=== PATIENT | female | born 1980 | race Caucasian/White ===

== ENCOUNTER 2021-12-08 11:04 | Emergency (ER) | payer OTHER, SELFPAY ==
[2021-12-08 11:14] VITALS: BP 116/71; PULSE 72; RESP 16; TEMP 36.4; O2SAT 99
--- NOTE | 2021-12-08 12:22 | ED.SKABFB ---
HPI - Skin/Abscess/Foreign Bdy General Chief complaint: Skin/Abscess/Foreign Body Stated complaint: Cut on finger Time Seen by Provider: 12/08/21 12:22 Source: patient Mode of arrival: ambulatory Limitations: no limitations History of Present Illness HPI narrative: 41-year-old female presents with concern for infection to left thumb. States last week she had laceration to distal aspect left thumb after using her wax warmer. States that laceration healed without complication. Today took off Band-Aid and noticed redness to lateral aspect of the cuticle left thumb. Is concerned that she may have an infection. There is no drainage. Range of motion to left thumb is intact. All systems reviewed and negative except as noted above. Related Data Allergies Allergy/AdvReac Type Severity Reaction Status Date / Time No Known Allergies Allergy Verified 12/08/21 12:27 Review of Systems Review of Systems: CONSTITUTIONAL: Denies fever, chills, or sweats. EYES: Denies visual changes, redness, or discharge. ENT: Denies rhinorrhea, congestion, sore throat, or otalgia. CARDIOVASCULAR: Denies chest pain, palpitations, or edema. RESPIRATORY: Denies cough or dyspnea. GASTROINTESTINAL: Denies abdominal pain, nausea, vomiting, or diarrhea. GENITOURINARY: Denies dysuria or hematuria. SKIN: Denies rash or itching. Reports redness to left thumb. MUSCULOSKELETAL: Denies back pain, joint pain, or myalgia. NEUROLOGIC: Denies headache, numbness, or weakness. PSYCHIATRIC: Denies anxiety or depression. All other systems reviewed are negative, except as documented in HPI. PMFSH Comments At time of signature, agree with nursing past medical, surgical, social and family history. There is no relevant family history pertinent to the presenting complaint. Exam Narrative: GENERAL: This is a well-nourished, well-developed patient, in no apparent distress. HEAD: normocephalic, atraumatic. EYES: PERRL. Sclera clear/white. Vision is grossly intact. EARS: External ears normal NOSE: External nose normal NECK: Neck supple, non-tender without lymphadenopathy, masses or thyromegaly. CARDIOVASCULAR: Regular rate and rhythm without murmurs, gallops, or rubs. RESPIRATORY: Clear to auscultation. Breath sounds equal bilaterally. No wheezes, rales, or rhonchi. SKIN: warm, Dry, intact with no suspicious lesions or rash, good texture and turgor. small blood blister to lateral aspect L thumb cuticle with scant surrounding erythema NEURO: awake, alert, and oriented to person, place and time. There were no obvious focal neurologic abnormalities. EXTREMITIES: No joint tenderness, effusion, or edema noted. Course Course Level of Care: Express Care Visit Vital Signs Vital signs: Vital Signs Temperature 36.4 C L 12/08/21 11:14 Pulse Rate 72 12/08/21 11:14 Respiratory Rate 16 12/08/21 11:14 Blood Pressure 116/71 12/08/21 11:14 Pulse Oximetry 99 12/08/21 11:14 Oxygen Delivery Room Air 12/08/21 11:14 Temperature 36.4 C L 12/08/21 11:14 Pulse Rate 72 12/08/21 11:14 Respiratory Rate 16 12/08/21 11:14 Blood Pressure 116/71 12/08/21 11:14 Pulse Oximetry 99 12/08/21 11:14 Oxygen Delivery Room Air 12/08/21 11:14 Reviewed reviewed reviewed reviewed MDM - Skin/Abscess/Foreign Bdy MDM Narrative Medical decision making narrative: Patient is aware of diagnosis, understands and agrees to treatment plan. Anticipatory guidance given. Patient agrees to follow-up as directed and is aware of reasons to seek care at the emergency department. Portions of this record may have been created with voice recognition software Discharge Plan Discharge Clinical Impression: Blood blister Patient Disposition: Home, Self-Care Condition: Stable Instructions: Purpura (ED) Prescriptions: New mupirocin 2 % ointment 1 applic topical BID 7 Days Qty: 15 0RF Follow-up/Referrals: PHYSICIAN NOT ON STAFF,NONSTAFF [Primary Care Provid
== END 2021-12-08 12:36 | disposition home or self-care (01) ==
PROVIDERS: Emergency Provider Nurse Practitioner Family
DX: S60.322A Blister (nonthermal) of left thumb, initial encounter (principal); X58.XXXA Exposure to other specified factors, initial encounter
CPT/HCPCS: 99213; G0463

== ENCOUNTER 2023-06-02 08:05 | Emergency (ER) | payer OTHER, SELFPAY ==
--- NOTE | 2023-06-02 08:12 | ED.URI ---
HPI - URI/Sore Throat General Chief Complaint: Upper Respiratory Infection Stated Complaint: sorethroat Time Seen by Provider: 06/02/23 08:13 Related Data Home Medications Medication Instructions Recorded Confirmed clonazepam 0.5 mg tablet mg 06/02/23 fluoxetine 10 mg capsule mg 06/02/23 Allergies Allergy/AdvReac Type Severity Reaction Status Date / Time bupropion [From Wellbutrin] Allergy Swelling Verified 06/02/23 08:23 [facility] Surgical History Surgical History (Updated 06/02/23 @ 08:15 by BABS Cunha) H/O eye surgery History of tonsillectomy Discharge Plan Discharge Prescriptions: No Action clonazepam 0.5 mg tablet fluoxetine 10 mg capsule Follow-up/Referrals: UNKNOWN,DOCTOR [Non-Staff] -
--- NOTE | 2023-06-02 08:13 | ED.GENADULT ---
HPI - General Adult General Chief complaint: Upper Respiratory Infection Stated complaint: sorethroat Time Seen by Provider: 06/02/23 08:13 Source: patient Mode of arrival: ambulatory Limitations: no limitations History of Present Illness HPI narrative: 42-year-old female patient presents to the [facility] with complaints of a sore throat with the right side being worse than left that started this morning when she woke up. Patient states she has 2 children the recently diagnosed in being treated for strep. Patient states she went to bed early last night at 6:00 p.m. due to feeling more tired than usual. Denies fevers body aches or chills. Denies any nausea vomiting or diarrhea. Denies any abdominal pain. Denies any chest pain or shortness of breath. Denies any congestion or runny nose. Patient denies taking any medications for those symptoms prior to arrival Related Data Home Medications Medication Instructions Recorded Confirmed clonazepam 0.5 mg tablet mg 06/02/23 fluoxetine 10 mg capsule mg 06/02/23 Allergies Allergy/AdvReac Type Severity Reaction Status Date / Time bupropion [From Wellbutrin] Allergy Swelling Verified 06/02/23 08:23 Review of Systems Review of Systems: CONSTITUTIONAL: Denies fever, chills, or sweats. EYES: Denies visual changes, redness, or discharge. ENT: Denies rhinorrhea, congestion, positive sore throat, or otalgia. CARDIOVASCULAR: Denies chest pain, palpitations, or edema. RESPIRATORY: Denies cough or dyspnea. GASTROINTESTINAL: Denies abdominal pain, nausea, vomiting, or diarrhea. GENITOURINARY: Denies dysuria or hematuria. SKIN: Denies rash or itching. MUSCULOSKELETAL: Denies back pain, joint pain, or myalgia. NEUROLOGIC: Denies headache, numbness, or weakness. PSYCHIATRIC: Denies anxiety or depression. PMFSH Surgical History Surgical History H/O eye surgery History of tonsillectomy Comments At the time of my signature I agree with nursing past medical history, surgical, social, and family history. There is no relevant family history pertinent to the presenting complaint. Exam Narrative: GENERAL: Well-appearing, well-nourished, and in no acute distress. HEAD: Normocephalic, atraumatic. EYES: PERRLA and EOMI. ENT: Nares with erythema and edema noted on the right side with the right nares swollen shut, no rhinorrhea or epistaxis. Mucous membranes moist. posterior pharynx with no erythema, tonsillar enlargement, exudates or lesions present. Bilateral TMs are clear no erythema or foreign bodies the canal. NECK: Supple. No lymphadenopathy CHEST: Clear to auscultation. No respiratory distress. HEART: Regular rate and rhythm. No murmur heard. Normal peripheral pulses. ABDOMEN: Soft, nontender, nondistended, normal active bowel sounds. EXTREMITIES: Normal range of motion. No edema. SKIN: Warm, dry, no rash. NEURO: No focal deficits. Alert and oriented x3. Course Course Level of Care: Express Care Visit Vital Signs Vital signs: Vital Signs Temperature 36.2 C L 06/02/23 08:25 Pulse Rate 70 06/02/23 08:25 Respiratory Rate 16 06/02/23 08:25 Blood Pressure 135/91 H 06/02/23 08:25 Pulse Oximetry 100 06/02/23 08:25 Oxygen Delivery Room Air 06/02/23 08:25 Temperature 36.2 C L 06/02/23 08:25 Pulse Rate 70 06/02/23 08:25 Respiratory Rate 16 06/02/23 08:25 Blood Pressure 135/91 H 06/02/23 08:25 Pulse Oximetry 100 06/02/23 08:25 Oxygen Delivery Room Air 06/02/23 08:25 vital signs reviewed. The patient has been informed that they may have pre-hypertension or Hypertension based on a BP reading in the department. I recommend that the patient call the primary care provider listed on their discharge instructions or a physician of their choice this week to arrange follow up for further evaluation of possible pre-hypertension or Hypertension Medical Decision Making MDM Narrati
[2023-06-02 08:25] VITALS: BP 135/91; PULSE 70; RESP 16; TEMP 36.2; O2SAT 100
== END 2023-06-02 08:43 | disposition home or self-care (01) ==
PROVIDERS: Emergency Provider Nurse Practitioner Family
DX: J02.8 Acute pharyngitis due to other specified organisms (principal); Z79.899 Other long term (current) drug therapy
CPT/HCPCS: 87081; 87880; 99213; G0463

== ENCOUNTER 2024-08-13 16:59 | Emergency (ER) | payer OTHER, SELFPAY ==
--- OUTSIDE RECORDS SUMMARY | 2024-08-13 17:03 | XMS_ITS | Clinical Summary ---
Author Organization [facility] [employer] Address [address] [place] [address] Care Team Providers Care Certified Performance Technologist Name Role Phone Jesse Stevens DO Primary Care Provider [phone] Jesse Stevens DO Unavailable [phone] Source Comments [facility],non-owned Affiliates and Associated Physician Practices is amultiple site organization consisting of ambulatory clinics and hospital sitesin [place], [place], [place] and [place]. This disclosure is being madepursuant to the Care Everywhere program and may not contain all information available regarding this patient. Last updated 18.[facility] [employer] Allergies Active Allergy Reactions Criticality Noted Date Comments Bupropion Angioedema High 09/23/2020 Medications * Be aware that medications may not be up to date on this document. Alwaysverify current medications with the patient. Medication Sig Dispensed Refills Start Date End Date Status Cholecalciferol (Vitamin D) 50 MCG (1999) capsuleIndicatio ns:Vitamin D Deficiency Take 1 (one) capsule by mouth once daily Reasons: Vitamin D Deficiency 30 capsule 5 06/14/2023 Active spironolactone (Aldactone) 100 MG tablet Take 1 (one) tablet by mouth once daily 10/06/2023 Active clonazePAM (KlonoPIN) 0.5 MG tabletIndication s:Anxiety Take 1 (one) tablet by mouth 2 times daily as needed anxiety Reasons: Feeling Anxious 60 tablet 1 07/02/2024 Active montelukast (Singulair) 10 MG tabletIndication s:cough Take 1 (one) tablet by mouth at bedtime Reasons: cough 30 tablet 1 07/02/2024 Active FLUoxetine (PROzac) 20 MG capsule Take 1 (one) capsule by mouth once daily 07/02/2024 Active tirzepatide (Zepbound) 5 MG/0.5ML injectionIndicat ions:Class 1 obesity without serious comorbidity with body mass index (BMI) of 32.0 to 32.9 in adult, unspecified obesity type Inject 5 (five) mg subcutaneously every 7 days 2 mL 3 07/21/2024 Active tirzepatide (Zepbound) 2.5 MG/0.5ML injectionIndicat ions:Obesity Inject 2.5 (two and one-half) mg subcutaneously every 7 days Reasons: OBESITY 2 mL 1 07/02/2024 Discontinu ed(Dose Adjustment ) Active Problems Problem Noted Date Diagnosed Date Class 1 obesity without seri ous comorbidity with body mass index (BMI) of 32.0 to 32.9 in adult 08/30/2023 Seasonal affective disorder 06/01/2019 Amenorrhea 01/25/2017 Adult attention deficit disorder 06/16/2015 Migraine without aura and wi thout status migrainosus, not intractable 06/16/2015 Anxiety 08/24/2011 ADD (attention deficit disorder) 07/10/2011 Allergic rhinitis 03/03/2010 Encounters Date Type Department Care Team Description 07/21/2024 Orders Only [facility] [address] [place] [address] Shen Chavez APRN-RAUL Class 1 obesity without serious comorbidity with body mass index (BMI) of 32.0 to 32.9 in adult, unspecified obesity type 07/02/2024 9:00 AM BROKERAGE COORDINATOR Office Visit [facility] [address] [place] [address] Jesse Stevens DO Well adult exam (Primary Dx); Malaise; Vitamin D deficiency; Lipid screening; DION (generalized anxiety disorder); Encounter for screening mammogram for malignant neoplasm of breast; Hypersomnia; LUIS (obstructive sleep apnea); Class 1 obesity without serious comorbidity with body mass index (BMI) of 32.0 to 32.9 in adult, unspecified obesity type; Cough, unspecified type from Last 3 Months Immunizations Name Administration Dates Next Due FLU VACCINE TRI IIV3 SPLIT I M (FLUVIRIN) 02/21/2018 INFLUENZA VACCINE 02/21/2018, 6,02/17/2015,2010,1982 03/05/2017 INFLUENZA VACCINE, QUADR. (F LUZONE; FLULAVAL; FLUARIX; AFLURIA QUADRIVALENT; 6MO+), 0.5 ML (IIV4) 04/29/2022,01/22/2020 TDAP (7yrs+) 06/27/2014,05/27/2012 Family History Medical History Relation Name Comments Hypercholesterolemia Father Hypertension Father Thyroid Disease Father Diabetes Maternal Grandmother Other Paternal Grandfather Relation Name Status Comments Father Alive Maternal Grandfather Other Maternal Grandmother Alive Mother Alive Paternal Grandfather Sister Alive Social History Tobacco Use Types Packs/Day Years Used Date Smoking Tobacco: Never Smokeless Tobacco: Never Alcohol Use Standard Drinks/Week Comments No 0 (1 standard drink = 0.6 oz pur e alcohol) PHQ-2 Answer Date Recorded Patient Health Questionnaire-2 Score 0 07/02/2024 Sex and Gender Information Value Date Recorded Sex Assigned at Not on file Gender Identity Not on file Sexual Orientation Not on file Last Filed Vital Signs Vital Sign Reading Time Taken Comments Blood Pressure 124/70 07/02/2024 8:53 AM BROKERAGE COORDINATOR Pulse 75 07/02/2024 8:53 AM BROKERAGE COORDINATOR Temperature 36.9 C (98.5 F) 07/02/2024 8:53 AM BROKERAGE COORDINATOR Respiratory Rate - - Oxygen Saturation 99% 07/02/2024 8:53 AM BROKERAGE COORDINATOR Inhaled Oxygen Concentration - - Weight 80.3 kg (177 lb) 07/02/2024 8:53 AM BROKERAGE COORDINATOR Height 160 cm (5' 2.99 ) 07/02/2024 8:53 AM BROKERAGE COORDINATOR Body Mass Index 31.36 07/02/2024 8:53 AM BROKERAGE COORDINATOR Plan of Treatment Health Maintenance Due Date Last Done Comments PAP SMEAR 1982 HIV SCREENING 1997 HEPATITIS C SCREENING 06/12/2000 HEPATITIS B VACCINE (1 of 3 - 19+ 3-dose series) 2001 COVID-19 VACCINE ( season) 2024 06/23/2020, 05/26/2020 INFLUENZA VACCINE (#1) 2024 2, 01/22/2020, 02/21/2018, Additional history exists DTAP/TDAP/TD VACCINES (3 - Td or Tdap) 06/27/2024 06/27/2014, 05/27/2012 SCREENING FOR DIABETES 01/31/2026 3, 01/25/2021, 06/16/2015, Additional history exists MAMMOGRAM 07/24/2026 07/24/2024 LIPID TESTING 02/01/2028 01/31/2023, 09/0 05/2020, 01/25/2017, Additional history exists ZOSTER VACCINE (1 of 2) 2032 DEPRESSION SCREENING Completed 07/02/2024, 08/30/2023, 06/14/2023, Additional history exists HIB VACCINE Aged Out No longer eligi ble based on patient's age to complete this topic HPV VACCINE Aged Out No longer eligi ble based on patient's age to complete this topic MENINGOCOCCAL (Group B) VACCINE SHARED DECISION-MAKING Aged Out No longer eligible based on patient's age to complete this topic MENINGOCOCCAL GROUPS A/C/Y/W VACCINE Aged Out No longer eligible based on patient's age to complete this topic PNEUMOCOCCAL VACCINE Aged Out No long er eligible based on patient's age to complete this topic Goals Goal Patient Goal Type Associated Problems Recent Progress Patient-Stated? Author Yearly PCP visit Lifestyle No Aria Shore MA Procedures Procedure Name Priority Date/Time Associated Diagnosis Comments MAMMOGRAM 07/24/2024 COMPREHENSIVE METABOLIC PANEL Routine 01/31/2023 11:50 AM CDT Malaise Well adult exam LIPID PROFILE REFLEX LDL DIRECT Routine 01/31/2023 11:50 AM CDT Well adult exam Lipid screening from Last 3 Months or Most Recently Relevant to Health Maintenance Results * MAMMOGRAM (07/24/2024) Anatomical Region Laterality Modality Other 07/24/2024 Narrative 07/24/2024 Ordered by an unspecified provider. Scanned Document SCANNING ONLY * (ABNORMAL) LIPID PROFILE REFLEX LDL DIRECT (01/31/2023 11:50 AM CDT) Cholesterol 185 100 - 199 mg/dL [facility] INSURANCE BILL Triglycerides 157(H) 0 - 149 mg/dL [facility] INSURANCE BILL HDL Cholesterol 42 >39 mg/dL [facility] INSURANCE BILL VLDL Calculated 28 5 - 40 mg/dL [facility] INSURANCE BILL LDL Calculated 115(H) 0 - 99 mg/dL [facility] INSURANCE BILL Comment NOT AVAILABLE [facility] INSURANCE BILL Comment:Result cannot be obt ained for this observation. Cholesterol/HDL Ratio 4.4 0.0 - 4.4 ratio [facility] INSURANCE BILL Comment: T. Chol/HDL Ratio Men Women 1/2 Avg.Risk 3.4 3.3 Avg.Risk 5.0 4.4 2X Avg.Risk 9.6 7.1 3X Avg.Risk 23.4 11.0 LDL/HDL Ratio 2.7 0.0 - 3.2 ratio [facility] INSURANCE BILL Comment: LDL/HDL Ratio Men Women 1/2 Avg.Risk 1.0 1.5 Avg.Risk 3.6 3.2 2X Avg.Risk 6.2 5.0 3X Avg.Risk 8.0 6.1 Blood BLOOD SPECIMEN / Unknown 01/31/2023 11:50 AM CDT 01/31/2023 Narrative Resulting Agency Comment Lab Testing performed at: [facility] [address] [id number] Jesse Stevens DO LAB - CHEMISTRY [place] [facility] INSURANCE BILL [address] [place] [address] * COMPREHENSIVE METABOLIC PANEL (01/31/2023 11:50 AM CDT) Glucose 84 70 - 99 mg/dL [facility] INSURANCE BILL BUN 12 6 - 24 mg/dL [facility] INSURANCE BILL Creatinine 0.83 0.57 - 1.00 mg/dL [facility] INSURANCE BILL eGFR by CKD-EPI 91 >59 mL/min/1.7 3 [facility] INSURANCE BILL BUN/Creatinine Ratio 14 9 - 23 [facility] INSURANCE BILL Sodium 141 134 - 144 mmol/L [facility] INSURANCE BILL Potassium 4.3 3.5 - 5.2 mmol/L [facility] INSURANCE BILL Chloride 106 96 - 106 mmol/L [facility] INSURANCE BILL CO2 23 20 - 29 mmol/L [facility] INSURANCE BILL Calcium 9.0 8.7 - 10.2 mg/dL [facility] INSURANCE BILL Protein Total 6.8 6.0 - 8.5 g/dL [facility] INSURANCE BILL Albumin 4.3 3.9 - 4.9 g/dL [facility] INSURANCE BILL Globulin Total 2.5 1.5 - 4.5 g/dL [facility] INSURANCE BILL Albumin/Globulin Ratio 1.7 1.2 - 2.2 [facility] INSURANCE BILL Bilirubin Total 0.2 0.0 - 1.2 mg/dL [facility] INSURANCE BILL Alkaline Phosphatase 87 44 - 121 IU/L [facility] INSURANCE BILL AST 16 0 - 40 IU/L [facility] INSURANCE BILL ALT 20 0 - 32 IU/L [facility] INSURANCE BILL Blood BLOOD SPECIMEN / Unknown 01/31/2023 11:50 AM CDT 01/31/2023 Narrative Resulting Agency Comment [facility] [address] [id number] Jesse Stevens DO LAB - CHEMISTRY [place] [facility] INSURANCE BILL [address] [place] [address] from Last 3 Months or Most Recently Relevant to Health Maintenance Care Teams Certified Performance Technologist Relationship Specialty Start Date End Date Jesse Stevens DO [address] [place] [address] PCP - General Family Medicine 01/19/10 Jesse Stevens DO [address] [place] [address] PCP - Attributed-[employer] 01/25/22
--- OUTSIDE RECORDS SUMMARY | 2024-08-13 17:03 | XMS_ITS | Continuity of Care Document ---
Author Organization [facility] Address [address] [address] Phone Care Team Providers Care Aquaculture Director Name Role Phone MD YATES GILBERT Unavailable Unavailable Advance Directives Directive Yes / No Effective Date File Name No Information Encounters Encounter Description Practice Location Reason(s) For Visit Diagnoses Date Provider Providers Copied on Encounter [facility], [address] [place], [place], [id number], [place] tel:[phone] [facility] No Information MD ERIKA YATES. [address] [place] [address], [id number], [place]. tel:[phone] Referring Provider: MAKENZIE ROBBINS G, [address], [place], [address]. tel:[phone] Family History Family Member Type Diagnosis Age At Onset No Information Payers Payer name Insurance type Covered alliance party ID Authoriza tisanket(s) [facility] [id number] CI [id number] Social History Type Description Quantity Date Captured Comments Sex Female Smoking Status No Information Chief Complaint And Reason For Visit No Information History Of Present Illness Encounter Date Complaint History Of Prese nt Illness No Information Instructions Date Instruction Additional Infor mation No Information Assessments Type Assessment Date No Information
[2024-08-13 17:55] VITALS: BP 142/92; PULSE 90; RESP 16; TEMP 36.6; O2SAT 100
--- NOTE | 2024-08-13 17:57 | ED_ITS ---
HPI - Eye Problem General Chief complaint: Eye Problems <THERESA Kelly Last Filed: 08/13/24 19:36> Stated complaint: Vision changes-Hx Narrow Angle Glaucoma-Lt eye <THERESA Kelly Last Filed: 08/13/24 19:36> Time Seen by Provider: 08/13/24 17:57 <THERESA Kelly Last Filed: 08/13/24 19:36> Focused HPI: Patient is a 44-year-old female who presents the ED with report of left eye vision changes. Patient has history of strabismus and narrow angle glaucoma in her left eye. She sees Dr. Regan with Ophthalmology at [facility] for this. States she was told her angle is not narrow enough to require surgery. Since around 230pm today, patient has been having blurry vision/vision changes in her left eye. She describes her vision as seeming out of focus in her left eye particularly when she is looking straight ahead or downward. No vision changes in the left eye. No vision loss. Denies pain, pain with eye movements. Denies photophobia. Denies halos, floaters, flashes of light, curtain coming down. GENERAL: Well-appearing, obese with BMI of 30.2, and in no acute distress. HEAD: Normocephalic, atraumatic. EYES: PERRL/EOMI, conjunctiva clear. No nystagmus. No pain with eye movements. No haziness of cornea. CHEST: Clear to auscultation. ?No respiratory distress. HEART: Regular rate and rhythm.? NEURO: ?Alert and oriented x3. Patient screened in triage and initial orders placed.? ?Additional care and disposition to be based upon?diagnostic testing and treatment. <THERESA Kelly Last Filed: 08/13/24 19:36> Source: patient <THERESA Kelly Last Filed: 08/13/24 19:36> Mode of arrival: ambulatory <THERESA Kelly Last Filed: 08/13/24 19:36> Limitations: no limitations <THERESA Kelly Last Filed: 08/13/24 19:36> History of Present Illness HPI Narrative: I agree with the assessment and documentation of Kristy Laird PA-C. <Felicia Wilburn APRN - Last Filed: 08/13/24 22:14> Related Data Home medications: Home Medications ?Medication ?Instructions ?Recorded ?Confirmed ?Last Taken ?Type clonazepam 0.5 mg tablet mg 06/02/23 Unknown History fluoxetine 10 mg capsule mg 06/02/23 Unknown History <Kristy Laird PA-C - Last Filed: 08/13/24 19:36> Allergies/adverse reactions: Allergies Allergy/AdvReac Type Severity Reaction Status Date / Time bupropion (From Wellbutrin) Allergy Swelling Verified 08/13/24 17:02 <Kristy Laird PA-C - Last Filed: 08/13/24 19:36> Review of Systems Review of Systems: All systems reviewed & are unremarkable except as noted in HPI and below <Felicia Wilburn APRN - Last Filed: 08/13/24 22:14> [facility] Surgical History Surgical History: Surgical History H/O eye surgery History of tonsillectomy <Kristy Laird PA-C - Last Filed: 08/13/24 19:36> Exam Narrative: GENERAL: Well-appearing, obese with BMI of 30.2, and in no acute distress. HEAD: Normocephalic, atraumatic. EYES: PERRL/EOMI, conjunctiva clear. No nystagmus. No pain with eye movements. No haziness of cornea. CHEST: Clear to auscultation. ?No respiratory distress. HEART: Regular rate and rhythm.? NEURO: ?Alert and oriented x3. <Felicia Wilburn APRN - Last Filed: 08/13/24 22:14> Course Vital Signs Vital signs: Vital Signs Temperature 36.6 C 08/13/24 17:55 Pulse Rate 90 08/13/24 17:55 Respiratory Rate 16 08/13/24 17:55 Blood Pressure 142/92 H 08/13/24 17:55 Pulse Oximetry 100 08/13/24 17:55 Temperature 36.6 C 08/13/24 17:55 Pulse Rate 90 08/13/24 17:55 Respiratory Rate 16 08/13/24 17:55 Blood Pressure 142/92 H 08/13/24 17:55 Pulse Oximetry 100 08/13/24 17:55 <Kristy Laird PA-C - Last Filed: 08/13/24 19:36> Vital Signs Temperature 36.6 C 08/13/24 17:55 Pulse Rate 90 08/13/24 17:55 Respiratory Rate 16 08/13/24 17:55 Blood Pressure 142/92 H 08/13/24 17:55 Pulse Oximetry 100 08/13/24 17:55 Temperature 36.6 C 08/13/24 17:55 Pulse Rate 90 08/13/24 17:55 Respiratory Rate 16 08/13/24 17:55 Blood Pressure 142/92 H 08/13/24 17:55 Pulse Oximetry 100 08/13/24 17:55 <Felicia Wilburn APRN - Last Filed: 08/13/24 22:14> MDM - Eye Problem MDM Narrative Medical decision making narrative: MSE by YVETTE in triage. L eye IOP 15 R eye 15-18 - no sx's L 20/50 R 20/25 Both 20/20 <Kristy Laird PA-C - Last Filed: 08/13/24 19:36> MSE by YVETTE in triage. Patient is a 44-year-old female who presents the ED with report of left eye vision changes. Patient has history of strabismus and narrow angle glaucoma in her left eye. She sees Dr. Regan with Ophthalmology at [facility] for this. States she was told her angle is not narrow enough to require surgery. Since around 230pm today, patient has been having blurry vision/vision changes in her left eye. She describes her vision as seeming out of focus in her left eye particularly when she is looking straight ahead or downward. No vision changes in the left eye. No vision loss. Denies pain, pain with eye movements. Denies photophobia. Denies halos, floaters, flashes of light, curtain coming down. L eye IOP 15 R eye 15-18 - no sx's L 20/50 R 20/25 Both 20/20 2015- Spoke with ophthalmology (Cha) at [place]. He has concerns for optic neuritis. Ophthalmology recommends pt be transferred to [facility] ER. 2020- Spoke with ER physician who agreed to accept pt in the ER at [facility]. Dr. Hay is the accepting ER physician. Patient in agreement with transfer to [facility]. Offered pt transfer via ambulance but she declined. She would like to go via private vehicle. <Felicia Wilburn APRN - Last Filed: 08/13/24 22:14> Differential Diagnosis Differential diagnosis: Likely corneal abrasion, conjunctivitis, acute iritis, glaucoma and corneal ulcer <Felicia Wilburn APRN - Last Filed: 08/13/24 22:14> Medical Records Attestation: I reviewed the patient's medical records. <Kristy Laird PA-C - Last Filed: 08/13/24 19:36> Discharge Plan Discharge Clinical Impression: Alteration in vision <Kristy Laird PA-C - Last Filed: 08/13/24 19:36> Patient Disposition: Acute Care Hospital <Kristy Laird PA-C - Last Filed: 08/13/24 19:36> Condition: Stable <Kristy Laird PA-C - Last Filed: 08/13/24 19:36> Additional Instructions: Please report to [facility] ER as soon as possible. They are expecting you. <Kristy Laird PA-C - Last Filed: 08/13/24 19:36> Patient Language: Korean <THERESA Kelly Last Filed: 08/13/24 19:36> Prescriptions: No Action clonazepam 0.5 mg tablet fluoxetine 10 mg capsule <THERESA Kelly Last Filed: 08/13/24 19:36> Follow-up/Referrals: PHYSICIAN NOT ON STAFF,NONSTAFF [Primary Care Provider] - <THERESA Kelly Last Filed: 08/13/24 19:36> Time of Disposition: 21:19 <THERESA Kelly Last Filed: 08/13/24 19:36> 21:19 <Felicia Wilburn, ELECTRIC VEHICLE ELECTRICIAN - Last Filed: 08/13/24 22:14>
--- OUTSIDE RECORDS SUMMARY | 2024-08-13 18:52 | XMS_ITS | Clinical Summary ---
Author Organization [facility] [employer] Address [address] [place] [address] Care Team Providers Care Medical Office Receptionist Name Role Phone Jesse Stevens DO Primary Care Provider [phone] Jesse Stevens DO Unavailable [phone] Source Comments [facility],non-owned Affiliates and Associated Physician Practices is amultiple site organization consisting of ambulatory clinics and hospital sitesin [place], [place], [place] and [place]. This disclosure is being madepursuant to the Care Everywhere program and may not contain all information available regarding this patient. Last updated 18.[facility] [employer] Allergies Active Allergy Reactions Criticality Noted Date [...] Department Care Team Description 07/21/2024 Orders Only [facility] [address] [place] [address] Shen Chavez APRN-RAUL Class 1 obesity without serious comorbidity with body mass index (BMI) of 32.0 to 32.9 in adult, unspecified obesity type 07/02/2024 9:00 AM SHELTER CASE MANAGER Office Visit [facility] [address] [place] [address] Jesse tSevens DO Well adult exam (Primary Dx); Malaise; [...] Comments Blood Pressure 124/70 07/02/2024 8:53 AM SHELTER CASE MANAGER Pulse 75 07/02/2024 8:53 AM SHELTER CASE MANAGER Temperature 36.9 C (98.5 F) 07/02/2024 8:53 AM SHELTER CASE MANAGER Respiratory Rate - - Oxygen Saturation 99% 07/02/2024 8:53 AM SHELTER CASE MANAGER Inhaled Oxygen Concentration - - Weight 80.3 kg (177 lb) 07/02/2024 8:53 AM SHELTER CASE MANAGER Height 160 cm (5' 2.99 ) 07/02/2024 8:53 AM SHELTER CASE MANAGER Body Mass Index 31.36 07/02/2024 8:53 AM SHELTER CASE MANAGER Plan of Treatment Health Maintenance Due Date [...] Agency Comment Lab [facility] performed [facility] [address] [facility] [phone] Jesse Stevens DO LAB - CHEMISTRY [facility] INSURANCE BILL [address] [place] [address] * COMPREHENSIVE METABOLIC PANEL (01/31/2023 11:50 AM [...] Resulting Agency Comment [facility]: [facility] [address] [facility] [phone] Jesse Stevens DO LAB - CHEMISTRY [place] [facility] INSURANCE BILL [address] [place] [address] from Last 3 Months or Most Recently Relevant to Health Maintenance Care Teams Medical Office Receptionist Relationship Specialty Start Date End Date Jesse Stevens DO [address] [place] [address] PCP - General Family Medicine 01/19/10 Jesse Stevens DO [address] [place] [address] PCP - Attributed-[employer] 01/25/22
--- OUTSIDE RECORDS SUMMARY | 2024-08-13 18:52 | XMS_ITS | Continuity of Care Document ---
Author Organization [facility] Address [address] [place] [address] Phone Care Team Providers Care Foundry Worker Name Role Phone MD YATES GILBERT Unavailable Unavailable Advance Directives Directive Yes / No Effective Date File Name No Information Encounters Encounter Description Practice Location Reason(s) For Visit Diagnoses Date Provider Providers Copied on Encounter [facility], [address] [place], [place], [id number], [place] tel:[phone] [facility] No Information MD ERIKA YATES. [address] [place] [address], [id number], [place]. tel:[phone] Referring Provider: MAKENZIE ROBBINS G, [address], [place], [address]. tel:[phone] Family History Family Member Type Diagnosis Age At Onset No Information Payers Payer name Insurance type Covered green party ID Authoriza tisanket(s) [facility] [id number] CI [id number] Social History Type Description Quantity Date Captured Comments Sex Female Smoking Status No Information Chief Complaint And Reason For Visit No Information History Of Present Illness Encounter Date Complaint History Of Prese nt Illness No Information Instructions Date Instruction Additional Infor mation No Information Assessments Type Assessment Date No Information
== END 2024-08-13 22:28 | disposition short-term general hospital (02) ==
PROVIDERS: Emergency Provider Registered Nurse
DX: H53.8 Other visual disturbances (principal); H40.9 Unspecified glaucoma
CPT/HCPCS: 99282

== ENCOUNTER 2024-12-15 14:43 | Emergency (ER) | payer OTHER, SELFPAY ==
--- OUTSIDE RECORDS SUMMARY | 2024-12-15 14:46 | XMS_ITS | Clinical Summary ---
Author Organization [facility] Address [address] [place] [address] Care Team Providers Care Brine Room Laborer Name Role Phone Jesse Stevens DO Primary Care Provider Allergies No known active allergies Medications artificial tears (ISOPTO TEARS) 0.5 % ophthalmic solution Administer 2 drops into both eyes every 3 (three) hours as needed (dry eye) 15 mL Active Active Problems Problem Noted Date Diagnosed Date Vision changes 08/14/2024 Assessment & Plan (09/14/2024 5:08 PM CDT): - Patient believes her vision has returned to normal/baseline and she denies significant discomfort. Occasional sensation of eye heaviness but no pain. - Patient reports concern of a previous eye doctor for narrow angles, and I offered to perform gonioscopy today but she declines due to significant anxiety with this procedure. Her angles do appear open by Robert Hayes and the IOP is reassuring OU. No glaucomatous ONH cupping on DFEx. - Discussed strict return precautions; patient will call if she experiences worsening vision, redness, pain, photophobia, flashes, floaters, curtains, or any other vision changes. Recommend routine care with local eye doctor, including eye exam every 2-4 years for her age group. Social History Tobacco Use Types Packs/Day Years Used Date Smoking Tobacco: Never Assessed Personal Safety Answer Date Recorded Have you ever been in or are you currently in a harmful physical or emotional relationship or is someone making you feel afraid or unsafe? Denies 08/13/2024 Comments Unknown Sex and Gender Information Value Date Recorded Sex Assigned at Not on file Legal Sex Female 3:44 PM HOG RIBBER Gender Identity Not on file Sexual Orientation Not on file Obstetrics History Last Filed Vital Signs Vital Sign Reading Time Taken Comments Blood Pressure 134/85 08/14/2024 1:40 AM CDT Pulse 87 08/14/2024 1:40 AM CDT Temperature 36.2 C (97.2 F) 08/13/2024 10:58 PM CDT Respiratory Rate 18 08/13/2024 10:58 PM CDT Oxygen Saturation 100% 08/14/2024 1:40 AM CDT Inhaled Oxygen Concentration - - Weight 77.1 kg (170 lb) 08/13/2024 10:58 PM CDT Height 160 cm (5' 3) 08/13/2024 10:58 PM CDT Body Mass Index 30.11 08/13/2024 10:58 PM CDT Plan of Treatment Health Maintenance Due Date Last Done Comments Breast Cancer Screening-Mammogram 1982 Cervical Cancer Screening 1982 Depression Screening 1982 Hepatitis C Screening 1982 Varicella Vaccines (1 of 2 - 13+ 2-dose series) 1995 Hepatitis B Screening 2000 Regular Well Visit/Exam 18-64 2000 Covid-19 Vaccine ( season) 2024 03/06/2023, 02/07/2022, 04/09/2021, Additional history exists DTaP/Tdap/Td Vaccine (3 - Td or Tdap) 06/27/2024 06/27/2014, 05/27/2012 Influenza Vaccine (Season Ended) 2025 03/06/2023, 04/29/2022, 02/03/2021, Additional history exists HPV Vaccines Aged Out No longer eligi ble based on patient's age to complete this topic Pneumococcal vaccine <65 Aged Out No longer eligible based on patient's age to complete this topic Insurance [facility] OPEN ACCESS [facility] OPEN ACCESS Care Teams Brine Room Laborer Relationship Specialty Start Date End Date Jesse Stevens DO [address] [place] [address] PCP - General Family Medicine 08/14/24
--- OUTSIDE RECORDS SUMMARY | 2024-12-15 14:46 | XMS_ITS | Referral Summary ---
Author Organization [facility] Address [address] [place] [address] Care Team Providers Care Human Resources Compensation Analyst Name Role Phone Jesse Stevens DO Primary [...] on file Legal Sex Female 3:44 PM CODE OFFICIAL Gender Identity Not on file Sexual Orientation [...] 08/13/2024 10:58 PM CDT Plan of Treatment Not on file Insurance [employer] OPEN ACCESS [employer] OPEN ACCESS Care Teams Human Resources Compensation Analyst Relationship Specialty Start Date End Date Jesse Stevens DO [address] [place] [address] PCP - General Family Medicine 08/14/24
--- OUTSIDE RECORDS SUMMARY | 2024-12-15 14:46 | XMS_ITS | Clinical Summary ---
Author Organization [facility] [employer] Address [address] [place] [address] Care Team Providers Care Cloth Colors Examiner Name Role Phone Jesse Stevens DO Primary Care Provider [phone] Jesse Stevens DO Unavailable Source Comments [facility],non-owned Affiliates and Associated Physician Practices is amultiple site organization consisting of ambulatory clinics and hospital sitesin [place], [place], [place] and [place]. This disclosure is being madepursuant to the Care Everywhere program and may not contain all information available regarding this patient. Last updated 18.[facility] [employer] Allergies Active Allergy Reactions Criticality Noted Date Comments Bupropion Angioedema High 09/23/2020 Medications * Be aware that medications may not be up to date on this document. Alwaysverify current medications with the patient. Cholecalciferol (Vitamin D) 50 MCG (1999) capsuleIndicati ons:Vitamin D Deficiency Take 1 (one) capsule by mouth once daily Reasons: Vitamin D Deficiency 30 capsule 5 06/14/19 24 Active spironolactone (Aldactone) 100 MG tablet Take 1 (one) tablet by mouth once daily 10/06/19 24 Active FLUoxetine (PROzac) 20 MG capsule Take 1 (one) capsule by mouth once daily 07/02/19 25 Active clonazePAM (KlonoPIN) 0.5 MG tabletIndicatio ns:Anxiety Take 1 (one) tablet by mouth 2 times daily as needed anxiety Reasons: Feeling Anxious 60 tablet 1 12/08/19 25 Active tirzepatide (Zepbound) 5 MG/0.5ML injectionIndica tions:Class 1 obesity without serious comorbidity with body mass index (BMI) of 32.0 to 32.9 in adult, unspecified obesity type Inject 5 (five) mg subcutaneously every 7 days (once a week) 2 mL 3 12/08/19 25 Active clonazePAM (KlonoPIN) 0.5 MG tabletIndicatio ns:Anxiety Take 1 (one) tablet by mouth 2 times daily as needed anxiety Reasons: Feeling Anxious 60 tablet 1 07/02/19 25 025 Discontin ued(Reord er) tirzepatide (Zepbound) 5 MG/0.5ML injectionIndica tions:Class 1 obesity without serious comorbidity with body mass index (BMI) of 32.0 to 32.9 in adult, unspecified obesity type Inject 5 (five) mg subcutaneously every 7 days 2 mL 3 07/21/19 25 025 Discontin ued(Reord er) Active Problems Problem Noted Date Diagnosed Date [...] Encounters Date Type Department Care Team Description 12/07/2024 Refill [facility] [address] [place] [address] Shen Chavez APRN-CNP MEDICATION REFILL 12/07/2024 Refill [facility] [address] [place] [address] Jesse Stevens DO MEDICATION REFILL 10/15/2024 1:40 PM CDT Office Visit [facility] [address] [place] [address] Shen Chavez APRN-CNP Sore throat (Primary Dx) 09/25/2024 3:40 PM CDT Video Visit [facility] - Family Medicine [address] [place] [id number] Jesse Stevens DO Blurred vision, left eye ; Class 1 obesity without serious comorbidity with body mass index (BMI) of 31.0 to 31.9 in adult, unspecified obesity type 09/25/2024 Travel from Last 3 Months Immunizations Immunization Administration Dates Next Due FLU VACCINE TRI IIV3 SPLIT I M (FLUVIRIN) 02/21/2018 INFLUENZA VACCINE 02/21/2018, 6,02/17/2015,02/27,1982 03/05/2017 INFLUENZA VACCINE, QUADR. (F LUZONE; FLULAVAL; [...] Date Smoking Tobacco: Never Smokeless Tobacco: Never Tobacco Cessation:Counseling Given: Not Answered Alcohol Use Standard Drinks/Week Comments No 0 (1 standard drink = 0.6 oz pur e alcohol) PHQ-2 Answer Date Recorded Patient Health Questionnaire-2 Score 0 10/15/2024 Comments No Sex and Gender Information Value Date Recorded Sex Assigned at Not on file Legal Sex Female 8:27 AM SECRETARY TO BOARD OF COMMISSIONERS Gender Identity Not on file Sexual Orientation Not on file Last Filed Vital Signs Vital Sign Reading Time Taken Comments Blood Pressure 128/82 10/15/2024 1:40 PM CDT Pulse 76 10/15/2024 1:40 PM CDT Temperature 36.8 C (98.3 F) 10/15/2024 1:40 PM CDT Respiratory Rate - - Oxygen Saturation 100% 10/15/2024 1:40 PM CDT Inhaled Oxygen Concentration - - Weight 74.8 kg (165 lb) 10/15/2024 1:40 PM CDT Height 160 cm (5' 2.99) 10/15/2024 1:40 PM CDT Body Mass Index 29.24 10/15/2024 1:40 PM CDT Plan of Treatment Upcoming Encounters Date Type Department Care Team (Late st Contact Info) Description 12/24/2024 10:20 AM CDT Video Visit [facility] - Family Medicine [address] [place] [address] Jesse Stevens DO [address] [place] [address] Health Maintenance Due Date Last Done Comments HIV SCREENING 1997 HEPATITIS C SCREENING 06/12/2000 HEPATITIS B VACCINE (1 of 3 - 19+ 3-dose series) 2001 PAP SMEAR 2003 HPV VACCINE (1 - 3-dose SCDM series) 2009 COVID-19 VACCINE (3 - 2023- season) 2024 06/23/2020, 05/26/2020 DTAP/TDAP/TD VACCINES (3 - Td or Tdap) 06/27/2024 06/27/2014, 05/27/2012 INFLUENZA VACCINE (#1) 2025 2, 01/22/2020, 02/21/2018, Additional history exists SCREENING FOR DIABETES 01/31/2026 3, 01/25/2021, 06/16/2015, [...] Procedure Name Priority Date/Time Associated Diagnosis Comments STREP A SCREEN - POINT OF CARE (AMB) STL Routine 10/15/2024 2:17 PM CDT Sore throat MAMMOGRAM 07/24/2024 COMPREHENSIVE METABOLIC PANEL Routine 01/31/2023 11:50 AM CDT Malaise Well adult exam LIPID PROFILE REFLEX LDL DIRECT Routine 01/31/2023 11:50 AM CDT Well adult exam Lipid screening from Last 3 Months or Most Recently Relevant to Health Maintenance Results * STREP A SCREEN - POINT OF CARE (AMB) STL (10/15/2024 2:17 PM CDT) Strep A Rapid POCT Negative Negative [facility] Strep A Internal Control Absent [facility] Lot # [id number] [facility] Expiration Date 07/12/25 [facility] Throat ENTIRE THROAT (SURFACE REGION OF NECK) / Unknown 10/15/2024 2:17 PM CDT us Shen Chavez DIRECTOR OF NATIONAL SALES-DRY MILL WORKER LAB - POINT OF CARE ORDERABLES Final Result [facility] [address] [place] [address], [facility] [phone] * MAMMOGRAM (07/24/2024) Anatomical Region Laterality Modality Other 07/24/2024 Narrative 07/24/2024 Ordered by an unspecified provider. us Scanned Document SCANNING ONLY Final Result * (ABNORMAL) LIPID PROFILE REFLEX LDL DIRECT [...] Resulting Agency Comment Lab Testing performed at: [facility] [address] [facility] [phone] us Jesse Stevens DO LAB - CHEMISTRY ORDERABLES F inal Result [facility] INSURANCE BILL [address] [place] [address] * COMPREHENSIVE METABOLIC PANEL (01/31/2023 11:50 AM [...] Resulting Agency Comment Lab Testing performed at: [facility] [id number] [phone] Jesse Stevens DO LAB - CHEMISTRY ORDERABLES F inal Result [facility] INSURANCE BILL [address] [place] [address] from Last 3 Months or Most Recently Relevant to Health Maintenance [place] [address] [facility] * Guarantor: SAVANNA ALARCON Account Type Relation to Patient Date of Phone Billing Address Personal/Family [address] [place] [address] Care Teams Cloth Colors Examiner Relationship Specialty Start Date End Date Jesse Stevens DO [address] [place] [address] PCP - General Family Medicine 01/19/10 Jesse Stevens DO [address] [place] [address] PCP - Attributed-[employer] 01/25/22
[2024-12-15 14:49] VITALS: BP 112/70; PULSE 71; RESP 16; TEMP 36.2; O2SAT 99
--- NOTE | 2024-12-15 14:51 | ED_ITS ---
HPI - URI/Sore Throat General Chief Complaint: Upper Respiratory Infection Stated Complaint: sore throat / Runny Nose Time Seen by Provider: 12/15/24 15:05 Source: patient Mode of arrival: ambulatory Limitations: no limitations History of Present Illness HPI Narrative: Vera is a 44-year-old female patient presenting to the clinic today with complaints of sore throat, sinus congestion, sinus drainage, and runny nose x8 days. She denies any fever, chills, or body aches. Denies any chest pain or SOB. Exposure to strep- both kids. Related Data Home Medications ?Medication ?Instructions ?Recorded ?Confirmed ?Last Taken ?Type clonazepam 0.5 mg tablet mg 06/02/23 Unknown History fluoxetine 10 mg capsule mg 06/02/23 Unknown History Allergies Allergy/AdvReac Type Severity Reaction Status Date / Time bupropion (From Wellbutrin) Allergy Intermediate Swelling Verified 12/15/24 15:08 Review of Systems Review of Systems: Pertinent positives per HPI. Patient denies any fever, chills, rash, headache, visual changes, dizziness, shortness of breath, chest pain, palpitations, nausea, vomiting, diarrhea, constipation, abdominal pain, or any urinary issues. PMFSH Surgical History Surgical History H/O eye surgery History of tonsillectomy Comments At the time of my signature, I reviewed and agree with the nursing past medical, surgical, social, and family history. There is no relevant family history pertinent to the patient complaint. Exam Narrative: General: Well-developed, well nourished, in no apparent distress Head: Normocephalic, atraumatic Eyes: Pupils equally round and reactive to light bilaterally, EOM intact, sclera and conjunctive clear, no discharge, lids normal Ears: TMs intact and congested, ear canals clear, no drainage, grossly hearing normal. Nose: Nares patent, clear nasal discharge, no inflammation, no sinus tenderness. Mouth: Oral pharynx without lesions or masses, good dentition, MMM. Postnasal Neck: Supple, trachea midline, no enlargement of anterior or posterior cervical nodes, no thyroid masses or goiter palpable. Cardio: Regular rate and rhythm, s1 and s2 normal, no murmur appreciated. Resp: Clear to auscultation bilaterally, no rhonchi, rales, wheezing or rubs Course Course Emergency Course: Portions of this record may have been created with voice recognition software. Level of Care: Express Care Visit Vital Signs Vital signs: Vital Signs Temperature 36.2 C L 12/15/24 14:49 Pulse Rate 71 12/15/24 14:49 Respiratory Rate 16 12/15/24 14:49 Blood Pressure 112/70 12/15/24 14:49 Pulse Oximetry 99 12/15/24 14:49 Oxygen Delivery Room Air 12/15/24 14:49 Temperature 36.2 C L 12/15/24 14:49 Pulse Rate 71 12/15/24 14:49 Respiratory Rate 16 12/15/24 14:49 Blood Pressure 112/70 12/15/24 14:49 Pulse Oximetry 99 12/15/24 14:49 Oxygen Delivery Room Air 12/15/24 14:49 Vital signs reviewed MDM - URI/Sore Throat MDM Narrative Medical decision making narrative: At the time of visit patient is resting comfortably on the exam table. Patient appears to be nontoxic. Patient has had nasal/sinus congestion, clear phlegm, and sore throat times 8 days. No fevers, chills, body aches. Vital signs are stable. Exposure to strep. Strep test was ordered. Labs: Strep test was negative in the clinic today. We will send strep for culture. Plan: I suspect patient has URI/postnasal drip. Prescription for prednisone was sent to the pharmacy. Supportive measures were discussed with the patient and they voiced understanding discharge instructions and agrees to treatment plan. Return precautions reviewed Differential Diagnosis Differential diagnosis: Likely upper respiratory infection, otitis media, sinusitis, viral infection, bronchitis, influenza, pharyngitis and other (COVID) Lab Data Labs: Lab Results 12/15/24 Range/Units 14:54 POC Grp A Strep Screen Negative (Negative) Discharge Plan Discharge Clinical Impression: PND (post-nasal drip) Upper respiratory infection Qualifiers: URI type: unspecified URI Qualified Code(s): J06.9 - Acute upper respiratory infection, unspecified Patient Disposition: Home Condition: Stable Instructions: Antibiotic Form, Cold Symptoms (ED), Postnasal Drip (DC) Additional Instructions: Take prescription medications only as prescribed-prednisone Increase fluids and stay well hydrated Tylenol/motrin for pain/fever Flonase and OTC antihistamines as directed Vicks vapor rub to open sinuses Sinus rinses for congestion Cepacol spray, cough drops, throat lozenges, warm tea with honey/lemon, gargle salt water to soothe throat BRAT diet for diarrhea Clear liquids x 24 hours then advance as tolerated for nausea/vomiting Go to the ED if you develop a worsening in your condition- high fever not controlled by Tylenol or Motrin, dehydration, weakness, lethargy, shortness of breath, or chest pain. Follow up with your PCP in 3-5 days if symptoms persist. Patient Language: Bel[place]ian Prescriptions: New prednisone 20 mg tablet 40 mg PO DAILY 5 Days Qty: 10 0RF No Action clonazepam 0.5 mg tablet fluoxetine 10 mg capsule Follow-up/Referrals: Rodney,Jesse Colmenares [Other] Time of Disposition: 15:10 Quality NIHSS Nursing Documentation ED NIHSS nursing documentation: reviewed/agree
[2024-12-15 15:08] LABS: EDSTREPNEGPOS1 Negative (Negative)
== END 2024-12-15 15:11 | disposition home or self-care (01) ==
PROVIDERS: Emergency Provider Nurse Practitioner Family
DX: R09.82 Postnasal drip (principal); J06.9 Acute upper respiratory infection, unspecified
CPT/HCPCS: 87081; 87880; 99213; G0463